=== PATIENT | female | born 1945 | race Caucasian/White ===

== ENCOUNTER → 2016-12-27 | Outpatient (CLI) | payer MEDICARE, OTHER ==
[~2016-12-27] MED LIST: CART240C4 PO; FISH1200 PO; FURO40TA PO; JANT4TAB PO; KLOR20TA6 PO; MELO7.5T PO; METO25 PO; SYNT25TA PO; TAB-TAB PO
[2016-12-27 13:12] LABS: HEMATOCRIT 41.1 % (35.0-46.0); MEAN CELL VOLUME 93.3 FL (80.0-100.0); MEAN CORPUSCULAR HGB CONC 33.2 % (32.0-36.0); PLATELET COUNT 260 TH/MM3 (150-450); RED BLOOD COUNT 4.41 MIL/MM3 (4.00-5.30); REVIEW FLAG FINAL
[2016-12-27 14:01] LABS: ALKALINE PHOSPHATASE 114 U/L (45-117); ALT (GPT) 22 U/L (10-53); ANION GAP 5 MEQ/L (5-15); AST (GOT) 15 U/L (15-37); BICARBONATE 35.3 MEQ/L (21.0-32.0); BLOOD UREA NITROGEN 28 MG/DL (7-18); CHLORIDE 99 MEQ/L (98-107); GLOMERULAR FILTRATION RATE 29 ML/MIN (>89); GLUCOSE,FASTING 139 MG/DL (74-99); HDL CHOLESTEROL 63.2 MG/DL (40.0-60.0); LDL CHOLESTEROL 71 MG/DL (0-99); POTASSIUM 4.4 MEQ/L (3.5-5.1); SODIUM (NA) 139 MEQ/L (136-145); TOTAL BILIRUBIN ADULT 0.5 MG/DL (0.2-1.0)
[2016-12-27 16:17] LABS: HEMOGLOBIN A1a 1.1 %; HEMOGLOBIN A1b 1.8 %; HEMOGLOBIN Ao 84.3 %; HEMOGLOBIN LA1C 2.3 %; HEMOGLOBIN P3 4.2 %
== END ==
LOC: PLAB 08:52
DX: E03.9 Hypothyroidism, unspecified (principal); D64.9 Anemia, unspecified; E11.9 Type 2 diabetes mellitus without complications; E78.5 Hyperlipidemia, unspecified; Z13.228 Encounter for screening for other metabolic disorders
CPT/HCPCS: 36415; 80053; 80061; 83036; 84443; 85027

== ENCOUNTER → 2017-02-23 | Outpatient (CLI) | payer MEDICARE, OTHER ==
[2017-02-23 12:41] LABS: BICARBONATE 33.3 MEQ/L (21.0-32.0); DIGOXIN 1.9 NG/ML (0.8-2.0); POTASSIUM 4.1 MEQ/L (3.5-5.1)
== END ==
LOC: PLAB 08:39
PROVIDERS: ATTEND Nuclear Medicine Nuclear Cardiology
DX: I48.91 Unspecified atrial fibrillation (principal)
CPT/HCPCS: 36415; 80048; 80162

== ENCOUNTER → 2017-08-29 | Outpatient (CLI) | payer MEDICARE, OTHER ==
[2017-08-29 16:18] LABS: AUTOMATED NEUTROPHIL # 4.3 TH/MM3 (1.8-7.7); BASOPHIL % 0.8 % (0.0-2.0); EOSINOPHIL # 0.1 TH/MM3 (0-0.4); EOSINOPHIL % 2.4 % (0.0-4.0); HEMATOCRIT 38.9 % (35.0-46.0); HEMO FLAGS DIFF FINAL; LYMPH % 15.9 % (9.0-44.0); MEAN CELL VOLUME 94.1 FL (80.0-100.0); MEAN CORPUSCULAR HGB CONC 32.9 % (32.0-36.0); MONO % 10.3 % (0.0-8.0); NEUT % 70.6 % (16.0-70.0); PLATELET COUNT 260 TH/MM3 (150-450); RED BLOOD COUNT 4.13 MIL/MM3 (4.00-5.30); RED CELL DISTRIBUTION WIDTH 13.5 % (11.6-17.2)
[2017-08-29 16:26] LABS: ALT (GPT) 28 U/L (10-53); ANION GAP 4 MEQ/L (5-15); AST (GOT) 17 U/L (15-37); BICARBONATE 36.6 MEQ/L (21.0-32.0); BLOOD UREA NITROGEN 27 MG/DL (7-18); CHLORIDE 96 MEQ/L (98-107); GLOMERULAR FILTRATION RATE 31 ML/MIN (>89); GLUCOSE,FASTING 95 MG/DL (74-99); POTASSIUM 4.9 MEQ/L (3.5-5.1); SODIUM (NA) 137 MEQ/L (136-145)
[2017-08-29 16:35] LABS: ALKALINE PHOSPHATASE 129 U/L (45-117); FREE T4 0.89 NG/DL (0.76-1.46); LDL CHOLESTEROL 83 MG/DL (0-99); TOTAL BILIRUBIN ADULT 0.4 MG/DL (0.2-1.0)
[2017-08-29 21:59] LABS: HEMOGLOBIN A1a 0.9 %; HEMOGLOBIN A1b 1.1 %; HEMOGLOBIN Ao 84.7 %; HEMOGLOBIN F 0.9 %; HEMOGLOBIN P3 4.1 %
== END ==
LOC: PLAB 12:17
DX: E78.5 Hyperlipidemia, unspecified (principal); D64.9 Anemia, unspecified; E03.9 Hypothyroidism, unspecified; E11.9 Type 2 diabetes mellitus without complications; Z13.228 Encounter for screening for other metabolic disorders
CPT/HCPCS: 36415; 80053; 80061; 83036; 84439; 84443; 84481; 85025

== ENCOUNTER 2018-03-18 13:38 | Observation (INO) | payer MEDICARE, OTHER ==
[~2018-03-18] VITALS: Ht 152.4 cm; Wt 102.0 kg
[2018-03-18 13:57] VITALS: BP 130/72; PULSE 77; RESP 16; TEMP 98.2; O2SAT 95
[2018-03-18] MEDS ORDERED: DILT1TAB4 PO (14:26)
[2018-03-18] MEDS ORDERED: WARF-22 PO (14:26)
[2018-03-18] MEDS ORDERED: METO50TA PO (14:27)
[2018-03-18] MEDS ORDERED: LEVO75TA3 PO (14:27)
[2018-03-18] MEDS ORDERED: FURO1TAB62 PO (14:27)
[2018-03-18] MEDS ORDERED: DIGO0.12 PO (14:27)
[2018-03-18] MEDS ORDERED: POTA-163 PO (14:27)
[2018-03-18] MEDS ORDERED: MELO7.5T27 PO (14:27)
[2018-03-18] MEDS ORDERED: TETANUS/DIPHTHERIA TOXOID ADULT 0.5 ML VIAL IM ONE (14:30)
[2018-03-18] MEDS ORDERED: SODIUM CHLORIDE 0.9% FLUSH 10 ML FLUSH IVF PRN (14:30)
--- NOTE | 2018-03-18 14:36 | PD ---
HPI Chief Complaint: Dizziness Time Seen by Provider: 14:20 Travel History International Travel<30 days: No Contact w/Intl Traveler<30days: No Traveled to known affect area: No History of Present Illness HPI Patient is a 72-year-old female with history of atrial fibrillation currently on Coumadin who presents the emergency room after she fell outside today and hit her head causing a laceration. Patient reports that she went to let her dog outside, reports that she was sitting outside waiting for her dog to finish when she got up to go to the front porch to sit with her dog. Patient reports that she went around the corner of her house and she thinks that she lost her balance as she felt weak and "wobbly" and fell forwards hitting her forehead on the brick wall. Patient denies any loss of consciousness although everything happened so fast. Reports that she doesn't remember falling onto the ground, reports that she does remember seeing the brick wall and hitting her forehead on it Patient reports that she is on Coumadin as she has history of pacemaker, reports that she was able to go into her house and clean the wound with peroxide. Patient at this time denies any headache or dizziness, denies any nausea or vomiting. Patient denies any vision changes, denies any neck pain, denies any chest pain or shortness of breath. Patient was ambulatory after this accident. Patient reports "I feel fine, I just need some stitches to my forehead." Patient does see Dr. Young as her return clerk. PFSH Past Medical History Hx Anticoagulant Therapy: Yes (coumadin) Arthritis: Yes Asthma: No Autoimmune Disease: No Blood Disorders: No Anxiety: No Depression: No Heart Rhythm Problems: Yes Cancer: No Cardiovascular Problems: Yes (htn on meds) High Cholesterol: No Chemotherapy: No Chest Pain: No Congestive Heart Failure: No COPD: No Cerebrovascular Accident: No Diabetes: No Diminished Hearing: No Endocrine: No Gastrointestinal Disorders: No GERD: No Genitourinary: No Headaches: No Hiatal Hernia: No Heparin Induced Thrombocytopen: No Hypertension: No Immune Disorder: No Implanted Vascular Access Dvce: Yes Kidney Stones: No Musculoskeletal: No Neurologic: No Psychiatric: No Reproductive: No Respiratory: No Migraines: No Radiation Therapy: No Renal Failure: No Seizures: No Sickle Cell Disease: No Sleep Apnea: No Thyroid Disease: Yes Ulcer: No Tetanus Vaccination: Unknown ?: Not Menopausal: Yes Past Surgical History Abdominal Surgery: No AICD: No Arteriovenous Shunt: No Body Medical Devices: PACER INSERTION 05/01/2013 Cardiac Surgery: No Ear Surgery: No Endocrine Surgery: No Eye Surgery: No Genitourinary Surgery: No Gynecologic Surgery: Yes (HYSTERECTOMY ) Hysterectomy: Yes Insulin Pump: No Joint Replacement: No Neurologic Surgery: No Oral Surgery: No Pacemaker: No Thoracic Surgery: No Other Surgery: Yes Social History Alcohol Use: No Tobacco Use: No Substance Use: No Allergies-Medications (Allergen,Severity, Reaction): Coded Allergies: No Known Allergies (Verified Adverse Reaction, Unknown, 03/18/18) Reported Meds & Prescriptions Reported Meds & Active Scripts Active Reported Digoxin 0.125 Mg Tab 0.125 Mg PO DAILY Meloxicam 7.5 Mg Tab 7.5 Mg PO DAILY Levothyroxine (Levothyroxine Sodium) 75 Mcg Tab 75 Mcg PO DAILY Metoprolol Tartrate 50 Mg Tab 50 Mg PO BID Lasix (Furosemide) 20 Mg Tab 20 Mg PO DAILY Potassium Chloride ER (Potassium Chloride) 20 Meq Tab 20 Meq PO QOD Diltiazem ER 24 HR 240 Mg Stephan 240 Mg PO DAILY Warfarin 10 Mg Tab 10 Mg PO DAILY Review of Systems General / Constitutional: No: Fever Eyes: No: Visual changes HENT: No: Headaches, Neck Stiffness, Neck Pain Cardiovascular: No: Chest Pain or Discomfort, Palpitations, Irregular Rhythm, Tachycardia Respiratory: No: Shortness of Breath Gastrointestinal: No: Abdominal Pain Genitourinary: No: Dysuria Musculoskeletal: No: Pain Skin: No Rash Neurologic: No: Weakness Psychiatric: No: Depression Endocrine: No: Polydipsia Hematologic/Lymphatic: No: Easy Bruising Physical Exam Narrative GENERAL: mild distress SKIN: Focused skin assessment warm/dry. HEAD: Normocephalic. Patient with a 1cm linear laceration to her right forehead EYES: Pupils equal and round. No scleral icterus. No injection or drainage. ENT: No nasal bleeding or discharge. Mucous membranes pink and moist. NECK: Trachea midline. No JVD. There is no midline tenderness CARDIOVASCULAR: Regular rate and rhythm. No murmur appreciated. RESPIRATORY: No accessory muscle use. Clear to auscultation. Breath sounds equal bilaterally. GASTROINTESTINAL: Abdomen soft, non-tender, nondistended. Hepatic and splenic margins not palpable. MUSCULOSKELETAL: No obvious deformities. No clubbing. No cyanosis. No edema. NEUROLOGICAL: Awake and alert. No obvious cranial nerve deficits. Motor grossly within normal limits. Normal speech. PSYCHIATRIC: Appropriate mood and affect; insight and judgment normal. Data Data Last Documented VS Vital Signs Date Time Temp Pulse Resp B/P (MAP) Pulse Ox O2 Delivery O2 Flow Rate FiO2 03/18/18 16:10 90 16 130/74 (92) 96 Room Air 03/18/18 13:57 98.2 Orders Orders Basic Metabolic Panel (Bmp) (03/18/18 14:26) Complete Blood Count With Diff (03/18/18 14:26) Act Partial Throm Time (Ptt) (03/18/18 14:26) Ct Brain W/O Iv Contrast(Rout) (03/18/18 14:26) Ct Cerv Spine W/O Contrast (03/18/18 14:26) Electrocardiogram (03/18/18 14:26) Iv Access Insert/Monitor (03/18/18 14:26) Wound Care (03/18/18 14:26) Sodium Chloride 0.9% Flush (Ns Flush) (03/18/18 14:30) Digoxin (03/18/18 14:26) Ckmb (Isoenzyme) Profile (03/18/18 14:26) Troponin I (03/18/18 14:26) Tetanus/Diphtheria Tox Adult (Tetanus/Di (03/18/18 14:30) CKMB (03/18/18 14:30) CKMB% (03/18/18 14:30) Prothrombin Time / Inr (Pt) (03/18/18 15:15) Labs Laboratory Tests Test 03/18/18 14:30 03/18/18 14:40 White Blood Count 11.7 TH/MM3 Red Blood Count 4.64 MIL/MM3 Hemoglobin 14.6 GM/DL Hematocrit 42.2 % Mean Corpuscular Volume 91.1 FL Mean Corpuscular Hemoglobin 31.4 PG Mean Corpuscular Hemoglobin Concent 34.5 % Red Cell Distribution Width 13.9 % Platelet Count 305 TH/MM3 Mean Platelet Volume 9.3 FL Neutrophils (%) (Auto) 85.7 % Lymphocytes (%) (Auto) 6.9 % Monocytes (%) (Auto) 4.8 % Eosinophils (%) (Auto) 0.7 % Basophils (%) (Auto) 1.9 % Neutrophils # (Auto) 10.0 TH/MM3 Lymphocytes # (Auto) 0.8 TH/MM3 Monocytes # (Auto) 0.6 TH/MM3 Eosinophils # (Auto) 0.1 TH/MM3 Basophils # (Auto) 0.2 TH/MM3 CBC Comment DIFF FINAL Differential Comment Activated Partial Thromboplast Time 36.1 SEC Blood Urea Nitrogen 16 MG/DL Creatinine 1.30 MG/DL Random Glucose 119 MG/DL Calcium Level 9.2 MG/DL Sodium Level 137 MEQ/L Potassium Level 3.8 MEQ/L Chloride Level 103 MEQ/L Carbon Dioxide Level 27.2 MEQ/L Anion Gap 7 MEQ/L Estimat Glomerular Filtration Rate 40 ML/MIN Total Creatine Kinase 990 U/L Creatine Kinase MB 32.1 NG/ML Creatine Kinase MB % 3.2 % Troponin I LESS THAN 0.02 NG/ML Digoxin Level 0.7 NG/ML Prothrombin Time 22.2 SEC Prothromb Time International Ratio 2.2 RATIO MDM Medical Decision Making Medical Screen Exam Complete: Yes Emergency Medical Condition: Yes Medical Record Reviewed: Yes Interpretation(s) EKG at 1444: afib at 76bpm, qt/qtc: 371/401, st seg depression with t wave inversion II, III, aVF, V3-V6 Vital Signs Date Time Temp Pulse Resp B/P (MAP) Pulse Ox O2 Delivery O2 Flow Rate FiO2 03/18/18 14:07 16 95 03/18/18 13:57 98.2 77 16 130/72 (91) 95 Differential Diagnosis Orthostatic hypotension, vertigo, cervical spine fracture, facial laceration, electrolyte abnormalities, arrhythmia, ACS Narrative Course During the course of the patients emergency department visit, the patients history, examination, and differential diagnosis were reviewed with the patient. The patient was placed on a dance therapist with oximetry and frequent blood pressure monitoring. The patient had an IV access obtained and blood work sent for analysis. The patient was initially provided tetanus booster The patients laboratory studies were reviewed and remarkable for Laboratory Tests Test 03/18/18 14:30 03/18/18 14:40 White Blood Count 11.7 TH/MM3 (4.0-11.0) Red Blood Count 4.64 MIL/MM3 (4.00-5.30) Hemoglobin 14.6 GM/DL (11.6-15.3) Hematocrit 42.2 % (35.0-46.0) Mean Corpuscular Volume 91.1 FL (80.0-100.0) Mean Corpuscular Hemoglobin 31.4 PG (27.0-34.0) Mean Corpuscular Hemoglobin Concent 34.5 % (32.0-36.0) Red Cell Distribution Width 13.9 % (11.6-17.2) Platelet Count 305 TH/MM3 (150-450) Mean Platelet Volume 9.3 FL (7.0-11.0) Neutrophils (%) (Auto) 85.7 % (16.0-70.0) Lymphocytes (%) (Auto) 6.9 % (9.0-44.0) Monocytes (%) (Auto) 4.8 % (0.0-8.0) Eosinophils (%) (Auto) 0.7 % (0.0-4.0) Basophils (%) (Auto) 1.9 % (0.0-2.0) Neutrophils # (Auto) 10.0 TH/MM3 (1.8-7.7) Lymphocytes # (Auto) 0.8 TH/MM3 (1.0-4.8) Monocytes # (Auto) 0.6 TH/MM3 (0-0.9) Eosinophils # (Auto) 0.1 TH/MM3 (0-0.4) Basophils # (Auto) 0.2 TH/MM3 (0-0.2) CBC Comment DIFF FINAL Differential Comment Activated Partial Thromboplast Time 36.1 SEC (24.3-30.1) Blood Urea Nitrogen 16 MG/DL (7-18) Creatinine 1.30 MG/DL (0.50-1.00) Random Glucose 119 MG/DL (74-106) Calcium Level 9.2 MG/DL (8.5-10.1) Sodium Level 137 MEQ/L (136-145) Potassium Level 3.8 MEQ/L (3.5-5.1) Chloride Level 103 MEQ/L (98-107) Carbon Dioxide Level 27.2 MEQ/L (21.0-32.0) Anion Gap 7 MEQ/L (5-15) Estimat Glomerular Filtration Rate 40 ML/MIN (>89) Total Creatine Kinase 990 U/L (26-192) Creatine Kinase MB 32.1 NG/ML (0.5-3.6) Creatine Kinase MB % 3.2 % (0.0-4.0) Troponin I LESS THAN 0.02 NG/ML Digoxin Level 0.7 NG/ML (0.8-2.0) Prothrombin Time 22.2 SEC (9.8-11.6) Prothromb Time International Ratio 2.2 RATIO Radiology studies were reviewed and remarkable for Last Impressions Head CT 03/18/18 1426 Signed Impressions: CONCLUSION: 1. No intracranial abnormality is seen. 2. Soft tissue injury at the right frontal scalp. Cervical Spine CT 03/18/18 1426 Signed Impressions: CONCLUSION: 1. No acute bony injury is seen. 2. Degenerative change at multiple levels as described above. 3. Asymmetry of the posterior elements of C2 and C3 likely congenital or at th e very least chronic. trop less than 0.02, total ck 990, ckmb 3.[address] of head and neck with no acute deformities. Patient EKG shows atrial fibrillation with ST depressions with T-wave inversions , these are new changes when compared to previous EKGs from May 2013. Given her EKG changes and her generalized weakness complaint, plan to observe her in the hospital for serial troponins. Patient is agreeable to plan of care. case reviewed with Dr. Jones who accepts pt to service Diagnosis Primary Impression: Abnormal EKG Additional Impressions: Generalized weakness Facial laceration Admitting Information Admitting Physician Requests: Observation Rica Murillo DO Mar 18, 2018 14:36
[2018-03-18 14:41] LABS: BASOPHIL # 0.2 TH/MM3 (0-0.2); BASOPHIL % 1.9 % (0.0-2.0); EOSINOPHIL # 0.1 TH/MM3 (0-0.4); EOSINOPHIL % 0.7 % (0.0-4.0); HEMATOCRIT 42.2 % (35.0-46.0); HEMOGLOBIN 14.6 GM/DL (11.6-15.3); LYMPH % 6.9 % (9.0-44.0); LYMPHOCYTE # 0.8 TH/MM3 (1.0-4.8); MEAN CELL VOLUME 91.1 FL (80.0-100.0); MEAN CORPUSCULAR HEMOGLOBIN 31.4 PG (27.0-34.0); MEAN CORPUSCULAR HGB CONC 34.5 % (32.0-36.0); MEAN PLATELET VOLUME 9.3 FL (7.0-11.0); MONO % 4.8 % (0.0-8.0); MONOCYTE # 0.6 TH/MM3 (0-0.9); NEUT % 85.7 % (16.0-70.0); PLATELET COUNT 305 TH/MM3 (150-450); RED BLOOD COUNT 4.64 MIL/MM3 (4.00-5.30); RED CELL DISTRIBUTION WIDTH 13.9 % (11.6-17.2); WHITE BLOOD COUNT 11.7 TH/MM3 (4.0-11.0)
[2018-03-18 14:50] LABS: CHLORIDE 103 MEQ/L (98-107); SODIUM (NA) 137 MEQ/L (136-145)
[2018-03-18 14:53] LABS: CALCIUM 9.2 MG/DL (8.5-10.1)
[2018-03-18 14:54] LABS: BICARBONATE 27.2 MEQ/L (21.0-32.0); BLOOD UREA NITROGEN 16 MG/DL (7-18); GLUCOSE,RANDOM 119 MG/DL (74-106)
[2018-03-18 14:57] LABS: GLOMERULAR FILTRATION RATE 40 ML/MIN (>89)
[2018-03-18 15:02] LABS: TROPONIN I LESS THAN 0.02 NG/ML (0.02-0.05)
[2018-03-18 15:12] LABS: DIGOXIN 0.7 NG/ML (0.8-2.0)
--- NOTE | 2018-03-18 15:33 | PD ---
Physical Exam Narrative I was asked by my attending physician Dr. Murillo to perform laceration repair Data Data Last Documented VS Vital Signs Date Time Temp Pulse Resp B/P (MAP) Pulse Ox O2 Delivery O2 Flow Rate FiO2 03/18/18 14:07 16 95 03/18/18 13:57 98.2 77 130/72 (91) Orders Orders Basic Metabolic Panel (Bmp) (03/18/18 14:26) Complete Blood Count With Diff (03/18/18 14:26) Act Partial Throm Time (Ptt) (03/18/18 14:26) Ct Brain W/O Iv Contrast(Rout) (03/18/18 14:26) Ct Cerv Spine W/O Contrast (03/18/18 14:26) Electrocardiogram (03/18/18 14:26) Iv Access Insert/Monitor (03/18/18 14:26) Wound Care (03/18/18 14:26) Sodium Chloride 0.9% Flush (Ns Flush) (03/18/18 14:30) Digoxin (03/18/18 14:26) Ckmb (Isoenzyme) Profile (03/18/18 14:26) Troponin I (03/18/18 14:26) Tetanus/Diphtheria Tox Adult (Tetanus/Di (03/18/18 14:30) CKMB (03/18/18 14:30) CKMB% (03/18/18 14:30) Prothrombin Time / Inr (Pt) (03/18/18 15:15) Labs Laboratory Tests Test 03/18/18 14:30 White Blood Count 11.7 TH/MM3 Red Blood Count 4.64 MIL/MM3 Hemoglobin 14.6 GM/DL Hematocrit 42.2 % Mean Corpuscular Volume 91.1 FL Mean Corpuscular Hemoglobin 31.4 PG Mean Corpuscular Hemoglobin Concent 34.5 % Red Cell Distribution Width 13.9 % Platelet Count 305 TH/MM3 Mean Platelet Volume 9.3 FL Neutrophils (%) (Auto) 85.7 % Lymphocytes (%) (Auto) 6.9 % Monocytes (%) (Auto) 4.8 % Eosinophils (%) (Auto) 0.7 % Basophils (%) (Auto) 1.9 % Neutrophils # (Auto) 10.0 TH/MM3 Lymphocytes # (Auto) 0.8 TH/MM3 Monocytes # (Auto) 0.6 TH/MM3 Eosinophils # (Auto) 0.1 TH/MM3 Basophils # (Auto) 0.2 TH/MM3 CBC Comment DIFF FINAL Differential Comment Activated Partial Thromboplast Time 36.1 SEC Blood Urea Nitrogen 16 MG/DL Creatinine 1.30 MG/DL Random Glucose 119 MG/DL Calcium Level 9.2 MG/DL Sodium Level 137 MEQ/L Potassium Level 3.8 MEQ/L Chloride Level 103 MEQ/L Carbon Dioxide Level 27.2 MEQ/L Anion Gap 7 MEQ/L Estimat Glomerular Filtration Rate 40 ML/MIN Total Creatine Kinase 990 U/L Creatine Kinase MB 32.1 NG/ML Creatine Kinase MB % 3.2 % Troponin I LESS THAN 0.02 NG/ML Digoxin Level 0.7 NG/ML MDM Supervised Visit with LEIGH: Yes Procedures Procedure Narrative LACERATION LOCATION: Right forehead LENGTH: 1.5 cm NUMBER OF STITCHES/JOELLEN: 9 REPAIR: The area of the laceration was prepped with Betadine and sterilely draped. The laceration was infiltrated with 1% lidocaine. The wound was copiously irrigated and explored without evidence of foreign body, tendon injury or neurovascular injury. The wound was closed using 5-0 Ethilon, 5-0 Vicryl. This was a double layer repair. A sterile dressing was applied. The patient was advised to keep the dressing clean and dry. Patient tolerated the procedure well. Hafsa Chaudhary Mar 18, 2018 15:33
--- NOTE | 2018-03-18 15:51 | RADRPT ---
EXAM DATE: 03/18/2018 3:40 PM EDT AGE/SEX: 72 years / Female INDICATIONS: Fell and hit forehead. CLINICAL DATA: This is the patient's initial encounter. Patient reports that signs and symptoms have been present for 1 day and indicates a pain score of 5/10. MEDICAL/SURGICAL HISTORY: Hypertension. Hypothyroidism. Cardiovascular disease. Anticoagulant th erapy. Pacemaker. Hysterectomy. Orthopedic surgery. RADIATION DOSE: 60.10 CTDI (mGy) COMPARISON: No prior exams available for comparison. TECHNIQUE: CT of the head without contrast. Using automated exposure control and adjustment of the mA and/or kV according to patient size, radiation dose was kept as low as reasonably achievable to ob tain optimal diagnostic quality images. FINDINGS: Cerebrum: The ventricles are normal for age. No evidence of midline shift, mass lesion, hemorrhage or acute infarction. No extraaxial fluid collections are seen. Posterior Fossa: The cerebellum and brainstem are intact. The 4th ventricle is midline. The cerebe llopontine angle is unremarkable. Extracranial: The visualized portion of the orbits is intact. There is a soft tissue injury at the a nterior right frontal scalp. Skull: The calvaria is intact. No evidence of skull fracture. CONCLUSION: 1. No intracranial abnormality is seen. 2. Soft tissue injury at the right frontal scalp. Electronically signed by: Edgar Hong MD 03/18/2018 3:50 PM EDT
--- NOTE | 2018-03-18 16:02 | RADRPT ---
EXAM DATE: 03/18/2018 3:44 PM EDT AGE/SEX: 72 years / Female INDICATIONS: Fell and hit forehead. CLINICAL DATA: This is the patient's initial encounter. Patient reports that signs and symptoms have been present for 1 day and indicates a pain score of 5/10. MEDICAL/SURGICAL HISTORY: Cardiovascular disease. Hypertension. Hypothyroidism. Anticoagulan t therapy. Pacemaker. Hysterectomy. Orthopedic surgery. RADIATION DOSE: 26.54 CTDI (mGy) COMPARISON: No prior exams available for comparison. TECHNIQUE: Contiguous axial images were obtained using helical multirow detector technique. The vol umetric data was post-processed with multiplanar reconstruction in oblique axial, sagittal, and coron al planes. Using automated exposure control and adjustment of the mA and/or kV according to patient s ize, radiation dose was kept as low as reasonably achievable to obtain optimal diagnostic quality kwame ges. FINDINGS: Vertebrae: Normal vertebral body height. Alignment: Normal. No subluxation. The right lobe of the thyroid appears prominent. C2-3: The bony spinal canal is normal in size. No evidence of disc bulge or herniation. The neural foramina are bilaterally patent. There is some hypertrophy of the left C2 facet and smaller left C3 facet and a smaller right C2 facet and larger right C3 facet. This abuts be long-standing and could b e partially contained congenital. Its of no significance. C3-4: The disc demonstrates decreased height. A significant impression on the thecal sac is not seen . There is uncovertebral hypertrophy being worse on the right. There is left facet hypertrophy. There is narrowing of the neural foramina bilaterally. C4-5: The disc demonstrates mild loss of height. There is minimal osteophytic ridging seen posterior ly being more prominent on the right. Significant stenosis is not appreciated. There is facet and unc overtebral hypertrophy. Neural foramina are grossly patent. C5-6: The disc touches decreased height. There is mild diffuse disc bulge and osteophytic ridging ca using at least a mild impression on the anterior aspect of thecal sac. There is uncovertebral hypertr ophy. There is mild narrowing of the right neural foramina. The left neural foramina is patent. C6-7: The distance is decreased height. There is mild diffuse disc bulge and osteophytic ridging. Th ere is uncovertebral hypertrophy. The neural foramina are grossly patent. C7-T1: The bony spinal canal is normal in size. No evidence of disc bulge or herniation. The neura l foramina are bilaterally patent. There is left facet hypertrophy. CONCLUSION: 1. No acute bony injury is seen. 2. Degenerative change at multiple levels as described above. 3. Asymmetry of the posterior elements of C2 and C3 likely congenital or at the very least chronic. Electronically signed by: Edgar Hong MD 03/18/2018 4:01 PM EDT
[2018-03-18 16:10] VITALS: BP 130/74; PULSE 90; RESP 16; O2SAT 96
[2018-03-18 16:17] LABS: INTERNATIONAL NORMALIZED RATIO 2.2 RATIO; PROTHROMBIN TIME - PATIENT 22.2 SEC (9.8-11.6)
[2018-03-18] MEDS ORDERED: NALOXONE HCL 0.4 MG/ML AMP IV PUSH PRN (16:45)
[2018-03-18] MEDS ORDERED: SENNOSIDES 8.6 MG TAB PO PRN (16:45)
[2018-03-18] MEDS ORDERED: ACETAMINOPHEN 325 MG TAB PO PRN (16:45)
[2018-03-18] MEDS ORDERED: SODIUM CHLORIDE 0.9% FLUSH 10 ML FLUSH IV FLUSH PRN (16:45)
[2018-03-18] MEDS ORDERED: TEMAZEPAM 15 MG CAP PO PRN (16:45)
--- NOTE | 2018-03-18 17:00 | HHI.HP ---
[facility] Edgar Mccoy MD Admission Diagnosis EKG changes, generalized weakness, facial laceration Diagnoses: Chief Complaint: Dizzy with a fall Travel History International Travel<30 Days: No Contact w/Intl Traveler <30 Da: No Traveled to Known Affected Are: No History of Present Illness This patient is a 72-year-old female with a history of atrial for ablation on Coumadin and came to the emergency room after a fall today. She went to walk the dog and turned quickly and lost her balance. She did feel weak and wobbly that day. She fell forward and hit her head having sustained abrasions and lacerations on her forehead nose and chin. She reports increased dizziness and shortness of breath symptoms over the last several weeks. She has not had any chest pain or tightness. She normally has no issues with medications and did not run out of any of her medicines. She follows up with her acute care nurse for her atrial fibrillation does have a pacemaker secondary to sick sinus syndrome. She has not had any fevers or chills. She is not a smoker but reports increased coughing recently. She notes no [id number] medications which are new and the patient has been seen in the emergency room for further evaluation of this fall. Her EKG is abnormal. On my review shows atrial fibrillation with some minimal ST changes which are nonspecific. Review of Systems Constitutional: COMPLAINS OF: Dizziness, DENIES: Diaphoretic episodes, Fatigue , Fever, Weight gain, Weight loss, Chills, Change in appetite, Night Sweats Endocrine: DENIES: Abnorml menstrual pattern, Heat/cold intolerance, Polydipsia , Polyuria, Polyphagia Eyes: DENIES: Blurred vision, Diplopia, Eye inflammation, Eye pain, Vision loss , Photosensitivity, Double Vision Ears, nose, mouth, throat: DENIES: Tinnitus, Hearing loss, Vertigo, Nasal discharge, Oral lesions, Throat pain, Hoarseness, Ear Pain, Running Nose, Epistaxis, Sinus Pain, Toothache, Odynophagia Respiratory: DENIES: Apneas, Cough, Snoring, Wheezing, Hemoptysis, Sputum production, Shortness of breath Cardiovascular: DENIES: Chest pain, Palpitations, Syncope, Dyspnea on Exertion , PND, Lower Extremity Edema, Orthopnea, Claudication Gastrointestinal: DENIES: Abdominal pain, Black stools, Bloody stools, Constipation, Diarrhea, Nausea, Vomiting, Difficulty Swallowing, Anorexia Genitourinary: DENIES: Abnormal vaginal bleeding, Dysmenorrhea, Dyspareunia, Sexual dysfunction, Urinary frequency, Urinary incontinence, Urgency, Hematuria , Dysuria, Nocturia, Vaginal discharge Musculoskeletal: DENIES: Joint pain, Muscle aches, Stiffness, Joint Swelling, Back pain, Neck pain Integumentary: DENIES: Abnormal pigmentation, Pruritus, Rash, Nail changes, Breast masses, Breast skin changes, Nipple discharge Hematologic/lymphatic: DENIES: Bruising, Lymphadenopathy Immunologic/allergic: DENIES: Eczema, Urticaria Neurologic: DENIES: Abnormal gait, Headache, Localized weakness, Paresthesias, Seizures, Speech Problems, Tremor, Poor Balance Psychiatric: DENIES: Anxiety, Confusion, Mood changes, Depression, Hallucinations, Agitation, Suicidal Ideation, Homicidal Ideation, Delusions Except as stated in HPI: all other systems reviewed are Neg Past Family Social History Past Medical History Hypertensive heart disease Hypothyroidism Obesity Shortness of breath History of sick sinus syndrome status post pacemaker Past Surgical History Pacemaker placement Hysterectomy Reported Medications Reviewed in EMR, nothing new Allergies: Coded Allergies: No Known Allergies (Verified Adverse Reaction, Unknown, 03/18/18) Active Ordered Medications Reviewed in the EMR Family History Both parents of unknown causes in their 70s Social History No current tobacco alcohol dependency Lives with her son Moved [facility] and has a third grade reading level and is retired from unskilled labor activities Physical Exam Vital Signs Vital Signs Date Time Temp Pulse Resp B/P (MAP) Pulse Ox O2 Delivery O2 Flow Rate FiO2 03/18/18 16:10 90 16 130/74 (92) 96 Room Air 03/18/18 14:07 16 95 03/18/18 13:57 98.2 77 16 130/72 (91) 95 Physical Exam GENERAL: This is a female who is obese hirsute SKIN: Various hypopigmented lesions no rashes, ecchymoses or lesions. Cool and dry. HEAD: Lacerations and abrasions in the face EYES: Pupils equal round and reactive. Extraocular motions intact. No scleral icterus. No injection or drainage. ENT: Nose without bleeding, purulent drainage or septal hematoma. Throat without erythema, tonsillar hypertrophy or exudate. Uvula midline. Airway patent. NECK: Trachea midline. No JVD or lymphadenopathy. Supple, nontender, no meningeal signs. CARDIOVASCULAR: Regular rate and rhythm without murmurs, gallops, or rubs. RESPIRATORY: Clear to auscultation. Breath sounds equal bilaterally. No wheezes , rales, or rhonchi. GASTROINTESTINAL: Abdomen soft, non-tender, nondistended. No hepato-splenomegaly , or palpable masses. No guarding. MUSCULOSKELETAL: Extremities without clubbing, cyanosis, or edema. No joint tenderness, effusion, or edema noted. No calf tenderness. Negative Homans sign bilaterally. NEUROLOGICAL: Awake and alert. Cranial nerves II through XII intact. Motor and sensory grossly within normal limits. Five out of 5 muscle strength in all muscle groups. Normal speech. Laboratory Laboratory Tests Test 03/18/18 14:30 03/18/18 14:40 03/18/18 16:40 White Blood Count 11.7 Red Blood Count 4.64 Hemoglobin 14.6 Hematocrit 42.2 Mean Corpuscular Volume 91.1 Mean Corpuscular Hemoglobin 31.4 Mean Corpuscular Hemoglobin Concent 34.5 Red Cell Distribution Width 13.9 Platelet Count 305 Mean Platelet Volume 9.3 Neutrophils (%) (Auto) 85.7 Lymphocytes (%) (Auto) 6.9 Monocytes (%) (Auto) 4.8 Eosinophils (%) (Auto) 0.7 Basophils (%) (Auto) 1.9 Neutrophils # (Auto) 10.0 Lymphocytes # (Auto) 0.8 Monocytes # (Auto) 0.6 Eosinophils # (Auto) 0.1 Basophils # (Auto) 0.2 CBC Comment DIFF FINAL Differential Comment Activated Partial Thromboplast Time 36.1 Blood Urea Nitrogen 16 Creatinine 1.30 Random Glucose 119 Calcium Level 9.2 Sodium Level 137 Potassium Level 3.8 Chloride Level 103 Carbon Dioxide Level 27.2 Anion Gap 7 Estimat Glomerular Filtration Rate 40 Total Creatine Kinase 990 Creatine Kinase MB 32.1 Creatine Kinase MB % 3.2 Troponin I LESS THAN 0.02 Digoxin Level 0.7 Prothrombin Time 22.2 Prothromb Time International Ratio 2.2 Result Diagram: 03/18/18 1430 03/18/18 1430 Imaging Last Impressions Head CT 03/18/18 142 Signed Impressions: CONCLUSION: 1. No intracranial abnormality is seen. 2. Soft tissue injury at the right frontal scalp. Cervical Spine CT 03/18/181425 Signed Impressions: CONCLUSION: 1. No acute bony injury is seen. 2. Degenerative change at multiple levels as described above. 3. Asymmetry of the posterior elements of C2 and C3 likely congenital or at th e very least chronic. Caprini VTE Risk Assessment Caprini VTE Risk Assessment: Mod/High Risk (score >= 2) VTE Pharm Contraindication: Coagulopathy,INR elevated Caprini Risk Assessment Model Point Value = 1 Point Value = 2 Point Value = 3 Point Value = 5 Age 41-60 Minor surgery BMI > 25 kg/m2 Swollen legs Varicose veins or History of unexplained or recurrent spontaneous Oral contraceptives or hormone replacement Sepsis (< 1 month) Serious lung disease, including pneumonia (< 1 month) Abnormal pulmonary function Acute myocardial infarction Congestive heart failure (< 1 month) History of inflammatory bowel disease Medical patient at bed rest Age 61-74 Arthroscopic surgery Major open surgery (> 45 min) Laparoscopic surgery (> 45 min) Malignancy Confined to bed (> 72 hours) Immobilizing plaster cast Central venous access Age >= 75 History of VTE Family history of VTE Factor V Leiden Prothrombin [id number] Lupus anticoagulant Anticardiolipin antibodies Elevated serum homocysteine Heparin-induced thrombocytopenia Other congenital or acquired thrombophilia Stroke (< 1 month) Elective arthroplasty Hip, pelvis, or leg fracture Acute spinal cord injury (< 1 month) Prophylaxis Regimen Total Risk Factor Score Risk Level Prophylaxis Regimen 0-1 Low Early ambulation 2 Moderate Order ONE of the following: *Sequential Compression Device (SCD) *Heparin 5000 units SQ BID 3-4 Higher Order ONE of the following medications: *Heparin 5000 units SQ TID *Enoxaparin/Lovenox 40 mg SQ daily (WT < 150 kg, CrCl > 30 mL/min) *Enoxaparin/Lovenox 30 mg SQ daily (WT < 150 kg, CrCl > 10-29 mL/min) *Enoxaparin/Lovenox 30 mg SQ BID (WT < 150 kg, CrCl > 30 mL/min) AND/OR *Sequential Compression Device (SCD) 5 or more Highest Order ONE of the following medications: *Heparin 5000 units SQ TID (Preferred with Epidurals) *Enoxaparin/Lovenox 40 mg SQ daily (WT < 150 kg, CrCl > 30 mL/min) *Enoxaparin/Lovenox 30 mg SQ daily (WT < 150 kg, CrCl > 10-29 mL/min) *Enoxaparin/Lovenox 30 mg SQ BID (WT < 150 kg, CrCl > 30 mL/min) AND *Sequential Compression Device (SCD) Assessment and Plan Problem List: (1) Pre-syncope ICD Code: R55 - Syncope and collapse Plan: Continue telemetry in this patient with known atrial fibrillation. She appears to have paced rhythm with some bradycardia intermittently Continue with current medications for now Patient records are available from her primary acute care nurse Dr. Young, echocardiogram within normal limits 01/2018, stress test -01/2018 Orthostatic vital signs (2) Abnormal EKG ICD Code: R94.31 - Abnormal electrocardiogram [ECG] [EKG] Status: Acute Plan: Paced with A. fib underlying rhythm Continue telemetry Follow-up TSH Digoxin level is low INR 2.2 (3) Facial laceration ICD Code: S01.81XA - Laceration without foreign body of other part of head, initial encounter Status: Acute Plan: Continue local wound care, status post laceration repair and ER (4) SOB (shortness of breath) ICD Code: R06.02 - Shortness of breath Plan: Follow-up chest x-ray (5) CKD (chronic kidney disease) stage 3, GFR 30-59 ml/min ICD Code: N18.3 - Chronic kidney disease, stage 3 (moderate) Plan: Etiology unclear likely due to hypertension Follow-up urinalysis IV hydration (6) Rhabdomyolysis ICD Code: M62.82 - Rhabdomyolysis Plan: This may be from her fall We will follow with serial creatinine kinase is with IV hydration and follow renal function Assessment and Plan Likely discharge home if stable overnight Code Status Full code Discussed Condition With Patient, ER MD Jones,Dolores Torres MD Mar 18, 2018 17:00
[2018-03-18] MEDS: LACTATED RINGER'S 1000 ML INJ 1,000 ML IV SCH (17:11)
[2018-03-18 17:17] LABS: BILIRUBIN, URINE NEG (NEG); BLOOD, URINE TRACE (NEG); GLUCOSE,URINE NEG (NEG); KETONE, URINE NEG (NEG); NITRITE,URINE NEG (NEG); PH, URINE 5.5 (5.0-8.5); URINE COLOR YELLOW (YELLW/STRAW); URINE LEUKOCYTE ESTERASE NEG (NEG)
[2018-03-18 17:22] LABS: WBC, URINE 0-2 /hpf (0-5)
[2018-03-18 17:23] LABS: RBC, URINE 0-3 /hpf (0-3); SQUAMOUS EPITHELIAL CELL URINE 0-5 /hpf (0-5)
--- NOTE | 2018-03-18 17:51 | RADRPT ---
EXAM DATE: 03/18/2018 5:45 PM EDT AGE/SEX: 72 years / Female INDICATIONS: Syncope. Shortness of breath. CLINICAL DATA: This is the patient's initial encounter. Patient reports that signs and symptoms have been present for 1 day and indicates a pain score of 0/10. MEDICAL/SURGICAL HISTORY: . Hypertension. Hypothyroidism. Cardiovascular disease. Anticoagulan t therapy. . Pacemaker. Hysterectomy. Orthopedic surgery. COMPARISON: [facility], CT CERVICAL SPINE W/O CONTRAST, 03/18/2018. . FINDINGS: There is a single-lead pacemaker in place from the left subclavian approach. The heart size is mildly enlarged. The lungs are clear. There is increased density in the medial right upper chest likely fro m ectatic vessels. These were seen on the prior CT of the cervical spine. CONCLUSION: No acute cardiopulmonary process. Cardiothymic. Electronically signed by: Edgar Hong MD 03/18/2018 5:50 PM EDT
[2018-03-18 20:00] VITALS: BP_SYST 122; BP_SYST 128; BP_DIAS 65; BP_DIAS 68; BP_DIAS 79; PULSE 71; PULSE 79; PULSE 84; RESP 20; TEMP 96.1; O2SAT 97
[2018-03-18 20:30] VITALS: PULSE 73
[2018-03-18] MEDS: SODIUM CHLORIDE 0.9% FLUSH 10 ML FLUSH IV FLUSH SCH (21:00)
[2018-03-19] VITALS (7 sets, daily range): BP systolic 108–152; BP diastolic 55–79; PULSE 65–87; RESP 18–20; TEMP 96.5–98.1; O2SAT 95–98
[2018-03-19] MEDS: LACTATED RINGER'S 1000 ML INJ 1,000 ML IV SCH ×3 (04:27→12:52)
[2018-03-19 06:35] LABS: AUTOMATED NEUTROPHIL # 5.7 TH/MM3 (1.8-7.7); BASOPHIL % 0.5 % (0.0-2.0); EOSINOPHIL # 0.1 TH/MM3 (0-0.4); EOSINOPHIL % 1.6 % (0.0-4.0); HEMATOCRIT 39.6 % (35.0-46.0); HEMOGLOBIN 13.4 GM/DL (11.6-15.3); LYMPH % 12.5 % (9.0-44.0); MEAN CELL VOLUME 94.1 FL (80.0-100.0); MEAN CORPUSCULAR HEMOGLOBIN 31.8 PG (27.0-34.0); MEAN CORPUSCULAR HGB CONC 33.8 % (32.0-36.0); MEAN PLATELET VOLUME 9.8 FL (7.0-11.0); MONO % 10.4 % (0.0-8.0); MONOCYTE # 0.8 TH/MM3 (0-0.9); PLATELET COUNT 234 TH/MM3 (150-450); RED BLOOD COUNT 4.21 MIL/MM3 (4.00-5.30); RED CELL DISTRIBUTION WIDTH 13.8 % (11.6-17.2); WHITE BLOOD COUNT 7.6 TH/MM3 (4.0-11.0)
[2018-03-19 06:49] LABS: CALCIUM 8.9 MG/DL (8.5-10.1)
[2018-03-19 06:50] LABS: BICARBONATE 30.5 MEQ/L (21.0-32.0)
[2018-03-19 06:53] LABS: CREATININE 1.1 MG/DL (0.50-1.00)
--- NOTE | 2018-03-19 08:36 | HHI.PR ---
Subjective Remarks Follow-up for rhabdomyolysis, fall, presyncope. Patient is currently doing well. On room air. Denies any chest pain, shortness of breath, fever or chills. She would like to go home if possible. Objective Vitals Vital Signs Date Time Temp Pulse Resp B/P (MAP) Pulse Ox O2 Delivery O2 Flow Rate FiO2 03/19/18 04:00 96.7 75 20 152/79 (103) 97 03/19/18 00:00 96.8 68 20 141/70 (93) 98 03/18/18 20:30 73 03/18/18 20:00 96.1 71 20 122/79 (93) 97 03/18/18 20:00 84 122/65 (84) 03/18/18 20:00 79 128/68 (88) 03/18/18 17:54 03/18/18 16:10 90 16 130/74 (92) 96 Room Air 03/18/18 14:07 16 95 03/18/18 13:57 98.2 77 16 130/72 (91) 95 I/O 03/18/18 03/18/18 03/18/18 03/19/18 03/19/18 03/19/18 07:00 15:00 23:00 07:00 15:00 23:00 Intake Total 1000 ml Output Total 600 ml Balance 400 ml Intake IV Total 1000 ml Output Urine Total 600 ml # Voids 1 # Bowel Movements 0 Result Diagram: 03/19/18 0520 03/19/18 0520 Imaging Last Impressions Head CT 03/18/18 1426 Signed Impressions: CONCLUSION: 1. No intracranial abnormality is seen. 2. Soft tissue injury at the right frontal scalp. Cervical Spine CT 03/18/18 1426 Signed Impressions: CONCLUSION: 1. No acute bony injury is seen. 2. Degenerative change at multiple levels as described above. 3. Asymmetry of the posterior elements of C2 and C3 likely congenital or at th e very least chronic. Chest X-Ray 03/18/18 0000 Signed Impressions: CONCLUSION: No acute cardiopulmonary process. Cardiothymic. Objective Remarks GENERAL: Alert, NAD. SKIN: Warm and dry. HEAD: Normocephalic. EYES: No scleral icterus. No injection or drainage. NECK: Supple, trachea midline. No JVD or lymphadenopathy. CARDIOVASCULAR: Regular rate and rhythm without murmurs, gallops, or rubs. RESPIRATORY: Breath sounds equal bilaterally. No accessory muscle use. GASTROINTESTINAL: Abdomen soft, non-tender, nondistended. MUSCULOSKELETAL: No cyanosis, or edema. BACK: Nontender without obvious deformity. No CVA tenderness. Procedures None. A/P Problem List: (1) Pre-syncope ICD Code: R55 - Syncope and collapse (2) Abnormal EKG ICD Code: R94.31 - Abnormal electrocardiogram [ECG] [EKG] Status: Acute (3) Facial laceration ICD Code: S01.81XA - Laceration without foreign body of other part of head, initial encounter Status: Acute (4) SOB (shortness of breath) ICD Code: R06.02 - Shortness of breath (5) CKD (chronic kidney disease) stage 3, GFR 30-59 ml/min ICD Code: N18.3 - Chronic kidney disease, stage 3 (moderate) (6) Rhabdomyolysis ICD Code: M62.82 - Rhabdomyolysis Assessment and Plan Ms. Gann is a 72-year-old female with a history of atrial fibrillation on Coumadin, hypothyroidism, sick sinus syndrome status post pacemaker placement who was admitted to the hospital on 03/18/2018 after she fell. Near-syncope Fall with sustained facial laceration Atrial fibrillation Sick sinus syndrome s/p pacemaker placement. -Patient follows up with disc pad plate filler Dr. Young. -Continue digoxin 0.125 mg daily, metoprolol 50 mg p.o. twice daily -Continue warfarin 10 mg p.o. daily. INR 2.2 on 03/18/2018. Will check INR in the morning. Mild rhabdomyolysis Mild acute kidney injury -Total creatinine kinase went from 990 on 03/18/2018 11/25/1940 on 03/19/2018. -Creatinine improved 1.3 --> 1.1. -Increase IV fluid 250 cc/h. will check total CK this afternoon. -If total CK shows evidence of trending down, patient could potentially go home today. Full code. Warfarin. INR 2.2 on 03/18/2018. Ratna Jason DO Mar 19, 2018 08:36
[2018-03-19] MEDS: SODIUM CHLORIDE 0.9% FLUSH 10 ML FLUSH IV FLUSH SCH ×2 (09:00→21:00)
[2018-03-19] MEDS: DIGOXIN 0.125 MG TAB PO SCH (09:23)
[2018-03-19] MEDS: DILTIAZEM-CD 240 MG CAP ER PO SCH (09:23)
[2018-03-19] MEDS: METOPROLOL TARTRATE 50 MG TAB PO SCH ×2 (09:23→22:51)
[2018-03-19] MEDS: LEVOTHYROXINE SODIUM 75 MCG TAB PO SCH (09:23)
[2018-03-19] MEDS ORDERED: PNEUMOCOCCAL POLYVALENT INJ 25 MCG/0.5 ML SYR IM ONE (10:00)
[2018-03-19 15:41] LABS: BICARBONATE 31.1 MEQ/L (21.0-32.0); CALCIUM 8.7 MG/DL (8.5-10.1)
[2018-03-19 15:45] LABS: CREATININE 1.2 MG/DL (0.50-1.00)
[2018-03-19] MEDS ORDERED: WARFARIN SOD 10 MG TAB PO SCH (16:00)
--- NOTE | 2018-03-19 16:40 | EKG ---
Date Performed: 03/18/2018 Time Performed: 14:44:03 PTAGE: 72 years EKG: ATRIAL FIBRILLATION INCOMPLETE RIGHT BUNDLE BRANCH BLOCK ST DEVIATION AND MODERATE T-WAVE A BNORMALITY, CONSIDER ANTEROLATERAL ISCHEMIA ST DEVIATION AND MODERATE T-WAVE ABNORMALITY, CONSIDER IN FERIOR ISCHEMIA ABNORMAL ECG when compared to prior EKG,heart rate has slowed significantly PREVIOUS TRACING : 05/01/2013 12.00 DOCTOR: Golden Webster Interpretating Date/Time 03/19/2018 16:39:11
[2018-03-20] VITALS: BP 111/60; PULSE 59; RESP 20; TEMP 97; O2SAT 97
[2018-03-20] MEDS: LACTATED RINGER'S 1000 ML INJ 1,000 ML IV SCH ×2 (00:53→07:50)
[2018-03-20 04:00] VITALS: BP 116/67; PULSE 68; RESP 20; TEMP 97.1; O2SAT 96
[2018-03-20] MEDS: LEVOTHYROXINE SODIUM 75 MCG TAB PO SCH (05:01)
[2018-03-20 07:01] LABS: INTERNATIONAL NORMALIZED RATIO 1.7 RATIO; PROTHROMBIN TIME - PATIENT 16.8 SEC (9.8-11.6)
[2018-03-20 07:50] VITALS: BP 117/64; PULSE 60; RESP 20; TEMP 98.7; O2SAT 96
[2018-03-20] MEDS: DILTIAZEM-CD 240 MG CAP ER PO SCH (07:52)
[2018-03-20] MEDS: DIGOXIN 0.125 MG TAB PO SCH (07:52)
[2018-03-20] MEDS: SODIUM CHLORIDE 0.9% FLUSH 10 ML FLUSH IV FLUSH SCH (07:52)
[2018-03-20] MEDS: METOPROLOL TARTRATE 50 MG TAB PO SCH (07:52)
[2018-03-20] MEDS ORDERED: K-TA10TA PO (09:07)
--- NOTE | 2018-03-20 09:10 | HHI.PR ---
Subjective Remarks Follow-up for rhabdomyolysis, fall, presyncope. Patient is currently doing well. Total CK trending down. Denies any CP, SOB, fever, chills. Objective Vitals Vital Signs Date Time Temp Pulse Resp B/P (MAP) Pulse Ox O2 Delivery O2 Flow Rate FiO2 03/20/18 04:00 97.1 68 20 116/67 (83) 96 03/20/18 00:00 97.0 59 20 111/60 (77) 97 03/19/18 20:30 69 03/19/18 20:00 97.0 70 20 110/57 (74) 95 03/19/18 17:24 96.5 65 18 113/56 (75) 97 03/19/18 13:15 96.5 79 18 108/55 (72) 96 03/19/18 09:20 98.1 87 18 135/68 (90) 95 I/O 03/19/18 03/19/18 03/19/18 03/20/18 03/20/18 03/20/18 07:00 15:00 23:00 07:00 15:00 23:00 Intake Total 1000 ml 1050 ml 1200 ml 4360 ml Output Total 600 ml 1200 ml 1650 ml Balance 400 ml 1050 ml 0 ml 2710 ml Intake Oral 1200 ml 960 ml IV Total 1000 ml 1050 ml 3400 ml Output Urine Total 600 ml 1200 ml 1650 ml # Voids 1 3 3 # Bowel Movements 0 1 0 Result Diagram: 03/19/18 0520 03/19/18 1515 Imaging Last Impressions Head CT 03/18/18 1426 Signed Impressions: CONCLUSION: 1. No intracranial abnormality is seen. 2. Soft tissue injury at the right frontal scalp. Cervical Spine CT 03/18/18 1426 Signed Impressions: CONCLUSION: 1. No acute bony injury is seen. 2. Degenerative change at multiple levels as described above. 3. Asymmetry of the posterior elements of C2 and C3 likely congenital or at th e very least chronic. Chest X-Ray 03/18/18 0000 Signed Impressions: CONCLUSION: No acute cardiopulmonary process. Cardiothymic. Objective Remarks GENERAL: Alert, NAD. SKIN: Warm and dry. HEAD: Normocephalic. EYES: No scleral icterus. No injection or drainage. NECK: Supple, trachea midline. No JVD or lymphadenopathy. CARDIOVASCULAR: Regular rate and rhythm without murmurs, gallops, or rubs. RESPIRATORY: Breath sounds equal bilaterally. No accessory muscle use. GASTROINTESTINAL: Abdomen soft, non-tender, nondistended. MUSCULOSKELETAL: No cyanosis, or edema. BACK: Nontender without obvious deformity. No CVA tenderness. Procedures None. A/P Problem List: (1) Pre-syncope ICD Code: R55 - Syncope and collapse (2) Abnormal EKG ICD Code: R94.31 - Abnormal electrocardiogram [ECG] [EKG] Status: Acute (3) Facial laceration ICD Code: S01.81XA - Laceration without foreign body of other part of head, initial encounter Status: Acute (4) SOB (shortness of breath) ICD Code: R06.02 - Shortness of breath (5) CKD (chronic kidney disease) stage 3, GFR 30-59 ml/min ICD Code: N18.3 - Chronic kidney disease, stage 3 (moderate) (6) Rhabdomyolysis ICD Code: M62.82 - Rhabdomyolysis Assessment and Plan Ms. Gann is a 72-year-old female with a history of atrial fibrillation on Coumadin, hypothyroidism, sick sinus syndrome status post pacemaker placement who was admitted to the hospital on 03/18/2018 after she fell. Near-syncope Fall with sustained facial laceration Atrial fibrillation Sick sinus syndrome s/p pacemaker placement. -Patient follows up with slot router Dr. Young. -Continue digoxin 0.125 mg daily, metoprolol 50 mg p.o. twice daily -Continue warfarin 10 mg p.o. daily. INR 1.7 on 03/20/2018. Mild rhabdomyolysis Mild acute kidney injury -Total creatinine kinase went from 990 ==> 2539 --> 2072. -Creatinine improved 1.3 --> 1.1 --> 1.20 -PCP follow up, BMP, CK in one week. Full code. Warfarin. INR 1.7 on 03/20/2018. Discharge patient to home Condition on discharge: Improved Heart healthy Diet as tolerated Ad Madai activity Rx written: KCL reduced from 20meq to 10meq Qother day. Follow-up with primary care physician within one week. Problem Qualifiers (1) Rhabdomyolysis: Qualified Codes: T79.6XXD - Traumatic ischemia of muscle, subsequent encounter Ratna Jason DO Mar 20, 2018 09:10
== END 2018-03-20 13:08 | disposition home or self-care (01) ==
LOC: PHED 13:38 → PHEDA 16:41 → PH3A 18:13
PROVIDERS: ADMIT Hospitalist; ATTEND Hospitalist
DX: R55 Syncope and collapse (principal); S01.81XA Laceration without foreign body of other part of head, initial encounter; I49.5 Sick sinus syndrome; I13.10 Hypertensive heart and chronic kidney disease without heart failure, with stage 1 through stage 4 chronic kidney disease, or unspecified chronic kidney disease; N18.3 Chronic kidney disease, stage 3 (moderate); R42 Dizziness and giddiness; I48.91 Unspecified atrial fibrillation; W19.XXXA Unspecified fall, initial encounter; R53.1 Weakness; R06.02 Shortness of breath; M62.82 Rhabdomyolysis; Z79.01 Long term (current) use of anticoagulants; Z79.899 Other long term (current) drug therapy; Z95.0 Presence of cardiac pacemaker
CPT/HCPCS: 12051; 70450; 71046; 72125; 80048; 80162; 80307; 81001; 82550; 82552; 84443; 84484; 85025; 85610; 85730; 90471; 90714; 93005; 96360; 96361; 97162; 99285; G0378; G8987; G8988; J7120

== ENCOUNTER → 2018-03-27 | Outpatient (CLI) | payer MEDICARE, OTHER ==
[~2018-03-27] MED LIST changes: -CART240C4 PO; +DIGO0.12 PO; +DILT1TAB4 PO; -FISH1200 PO; +FURO1TAB62 PO; -FURO40TA PO; -JANT4TAB PO; +K-TA10TA PO; -KLOR20TA6 PO; +LEVO75TA3 PO; -MELO7.5T PO; +MELO7.5T27 PO; -METO25 PO; +METO50TA PO; -SYNT25TA PO; -TAB-TAB PO; +WARF-22 PO
[2018-03-27 17:51] LABS: HEMATOCRIT 39.6 % (35.0-46.0); HEMOGLOBIN 13.3 GM/DL (11.6-15.3); MEAN CELL VOLUME 92.6 FL (80.0-100.0); MEAN CORPUSCULAR HEMOGLOBIN 31.1 PG (27.0-34.0); MEAN CORPUSCULAR HGB CONC 33.6 % (32.0-36.0); MEAN PLATELET VOLUME 9.5 FL (7.0-11.0); PLATELET COUNT 313 TH/MM3 (150-450); RED BLOOD COUNT 4.28 MIL/MM3 (4.00-5.30); WHITE BLOOD COUNT 6.8 TH/MM3 (4.0-11.0)
[2018-03-27 18:17] LABS: ALBUMIN 3.9 GM/DL (3.4-5.0); AST (GOT) 18 U/L (15-37); BICARBONATE 28.3 MEQ/L (21.0-32.0); BLOOD UREA NITROGEN 18 MG/DL (7-18); CALCIUM 9.1 MG/DL (8.5-10.1); CHLORIDE 100 MEQ/L (98-107); CREATININE 1.24 MG/DL (0.50-1.00); GLOMERULAR FILTRATION RATE 42 ML/MIN (>89); GLUCOSE,FASTING 94 MG/DL (74-99); SODIUM (NA) 138 MEQ/L (136-145)
[2018-03-27 18:18] LABS: ALT (GPT) 33 U/L (10-53); CHOLESTEROL 157 MG/DL (120-200)
[2018-03-27 18:28] LABS: ALKALINE PHOSPHATASE 120 U/L (45-117); LDL CHOLESTEROL 79 MG/DL (0-99); TOTAL BILIRUBIN ADULT 0.8 MG/DL (0.2-1.0); TOTAL PROTEIN 7.4 GM/DL (6.4-8.2); TRIGLYCERIDES 100 MG/DL (42-150)
[2018-03-27 19:17] LABS: HEMOGLOBIN A1C 5.6 % (4.3-6.0)
== END ==
LOC: PLAB 12:28
DX: D64.9 Anemia, unspecified (principal); E78.5 Hyperlipidemia, unspecified; E11.9 Type 2 diabetes mellitus without complications; E03.9 Hypothyroidism, unspecified; Z13.228 Encounter for screening for other metabolic disorders
CPT/HCPCS: 36415; 80053; 80061; 83036; 84443; 85027